=== PATIENT | male | born 1985 | race Caucasian/White ===

== ENCOUNTER 2020-12-31 19:08 | Emergency (ER) | payer MEDICARE, SELFPAY ==
--- NOTE | 2020-12-31 19:19 | ED.UPPEXIN ---
HPI - Extremity Injury (Upper) General Chief Complaint: Wound/Laceration Stated Complaint: cut 2nd finger Time Seen by Provider: 12/31/20 19:19 Source: patient and RN notes reviewed Mode of arrival: ambulatory Limitations: no limitations History of Present Illness HPI narrative: 35-year-old male presents to the [facility] with an injury, cut tip on 2nd finger left hand finger with a pocket knife just [employer]. Last tDap 7 years ago. Related Data Home Medications Medication Instructions Recorded Confirmed No Home Medications 12/31/20 12/31/20 Allergies Allergy/AdvReac Type Severity Reaction Status Date / Time No Known Allergies Allergy Verified 12/31/20 19:36 Review of Systems Review of Systems: All systems reviewed & are unremarkable except as noted in HPI and below Constitutional: Constitutional: Reports no additional constitutional complaints Cardiovascular: Cardiovascular: Reports no additional cardiovascular complaints Respiratory: Respiratory: Reports no additional respiratory complaints Musculoskeletal: Musculoskeletal: Reports no additional musculoskeletal complaints, Denies arthralgias and Denies joint swelling Integumentary/Breasts: Skin/Breast: Reports as per HPI Comments: avulsion of skin 2nd finger tip left hand Neurologic: Reports system reviewed and no additional complaints, except as documented Psychiatric: Psychiatric: Reports no additional psychiatric complaints PMFSH Comments At the time of my signature, I reviewed and agree with the nursing past medical, surgical, social, and family history. There is no relevant family history pertinent to the patient complaint. Exam Const: General: healthy appearing, no acute distress and alert Nutritional Appearance: well nourished Orientation/consciousness: patient oriented x3 Limitations: no limitations HENMT: Head: normal to inspection Neck: Neck: normal visual inspection Chest: Chest palpation & inspection: normal inspection of the chest Resp: Effort & Inspection: normal respiratory effort and no use of accessory muscles Auscultation: clear to auscultation bilaterally, no crackles, no rales, no rhonchi and no wheezes Cardio: Rate: regular rate Rhythm: regular rhythm Skin: Wounds: wounds noted (0.5 cm diameter) avulsion left distal 2nd finger Neuro: General: patient oriented x3, moves all extremities and no focal motor deficits Speech: normal speech Gait exam (Neuro): Normal gait present Extrem: General: normal to inspection and no pedal edema Psych: Appearance: grossly normal and well kempt Mental Status: mental status grossly normal Affect: normal affect Attitude: cooperative Thought content: Yes Normal thought content present Course Course Emergency Course: Discharge instructions reviewed with mom /patient, as well as provided in writing per nursing staff. The instructions also include specific and strict return/GO TO THE ER as well as f/u information. All questions have been answered, and the mom /patient deny any further questions with discharge and discharge plan. Vital Signs Vital signs: Vital Signs Temperature 96.3 F L 12/31/20 19:21 Pulse Rate 91 12/31/20 19:21 Respiratory Rate 16 12/31/20 19:21 Blood Pressure 150/85 H 12/31/20 19:21 Pulse Oximetry 99 12/31/20 19:21 Temperature 96.3 F L 12/31/20 19:21 Pulse Rate 91 12/31/20 19:21 Respiratory Rate 16 12/31/20 19:21 Blood Pressure 150/85 H 12/31/20 19:21 Pulse Oximetry 99 12/31/20 19:21 Reviewed. Discussed following up with primary care provider for blood pressure MDM - Extremity Injury (Upper) Differential Diagnosis Differential diagnosis: Likely other (Finger laceration, finger abrasion, finger avulsion) Critical Care Time Critical Care Time Critical Care Time: No Discharge Plan Discharge Clinical Impression: Avulsion of skin Patient Disposition: Home, Self-Care Condition: Stable Instructions: Antibiotic Form
[2020-12-31 19:21] VITALS: BP 150/85; PULSE 91; RESP 16; TEMP 35.7; O2SAT 99
[2020-12-31] MEDS: TETANUS,DIPHTHERIA,AC PERTUSSIS ADULT (0.5 ML) BOOSTRIX IM (19:27)
[2020-12-31] MEDS: CELLULOSE OXIDIZED 2 x 3 INCH 1 PKT XX (19:35)
== END 2020-12-31 19:48 | disposition home or self-care (01) ==
PROVIDERS: Emergency Provider Nurse Practitioner
DX: S61.201A Unspecified open wound of left index finger without damage to nail, initial encounter (principal); W26.0XXA Contact with knife, initial encounter; Z23 Encounter for immunization
CPT/HCPCS: 90471; 90715; 99203; G0463